=== PATIENT | male | born 1990 | race Caucasian/White ===

== ENCOUNTER → 2023-02-05 09:38 | Outpatient (BNVA) | payer OTHER, SELFPAY | PROVIDERS: Visit Provider Family Medicine | DX: L40.9 Psoriasis, unspecified (principal); R01.1 Cardiac murmur, unspecified; Z68.34 Body mass index [BMI] 34.0-34.9, adult | CPT/HCPCS: 80053; 80061; 84439; 84443; 85025 ==

== ENCOUNTER → 2024-01-29 09:56 | Outpatient (BNVA) | payer OTHER, SELFPAY | PROVIDERS: PCP Family Medicine; Visit Provider Family Medicine | DX: Z68.34 Body mass index [BMI] 34.0-34.9, adult (principal) | CPT/HCPCS: 80053; 80061 ==